=== PATIENT | female | born 1950 | race Caucasian/White ===

== ENCOUNTER 2020-04-02 07:36 | Outpatient (REF) | payer MEDICARE, OTHER, SELFPAY ==
--- NOTE | 2020-04-02 07:43 | MM_ITS ---
EXAMINATION: MM SCREENING DIGITAL BREAST TOMOSYNTHESIS, BILATERAL CLINICAL INFORMATION: Screening. Asymptomatic. Prior [id number] mammography currently unavailable. The lifetime risk of breast cancer based on the Tyrer-Cuzick Model is 3%. COMPARISON: None. TECHNIQUE: Digital breast tomosynthesis is performed in both the craniocaudal and mediolateral oblique views along with computer-aided detection (CAD). Synthesized 2D images are generated from the tomosynthesis. Additional bilateral exaggerated CC views are provided. FINDINGS: There are scattered areas of fibroglandular density (ACR BI-RADS breast composition Category b). There is fine fibronodular parenchymal pattern with no significant mass or architectural abnormality. There are no abnormal calcifications. Bilateral arterial calcifications are present. The axilla and skin contours are unremarkable. Radiology department staff will attempt to retrieve prior outside mammography to allow for comparison in an addendum report. MM/MM tomosynthesis screening BI IMPRESSION: No mammographic evidence of malignancy. ASSESSMENT: BI-RADS 2: Benign RECOMMENDATION: 1. Routine annual mammography screening. 2. Radiology department staff will attempt to retrieve prior outside mammography to allow for comparison in an addendum report. [facility] the [facility] with mildly symmetrically dilated 20 This patient's information was entered into a reminder system with a target due date for their next mammogram.
--- NOTE | 2020-04-02 07:44 | MM_ITS ---
EXAMINATION: BONE DENSITOMETRY CLINICAL INDICATION: Osteoporosis. COMPARISON: This is the patient's baseline examination. TECHNIQUE: Using a [employer] DXA System (software version: 13.1) manufactured by [employer], dual-energy x-ray absorptiometry was performed of the lumbar spine and left hip. The images are of good technical quality. Summary results are attached. FINDINGS: AP SPINE L2-L4 (excluding L1): The data of L1-L4 has been changed to exclude the L1 vertebral body, because degenerative sclerosis at this level may cause overestimation of lumbar spine density. BMD 1.173 g/cm2, Z-score 0.3, T-score -0.2, normal. LEFT FEMUR, NECK: BMD 0.916 g/cm2, Z-score 0.1, T-score -0.9, normal. LEFT FEMUR, TOTAL: BMD 0.874 g/cm2, Z-score -0.4, T-score -1.1, osteopenia. IDENTIFIED RISK FACTORS: Early menopause, secondary osteoporosis, hysterectomy. Osteoporosis, history of fracture (adult). HISTORY OF FRACTURE: Wrist. MEDICATIONS: Vitamin D. MM/XR DEXA axial skeleton IMPRESSION: 1. DIAGNOSIS: Osteopenia based on the lowest T-score value of -1.1 in the total femur applying World Health Organization criteria. 2. 10-YEAR FRACTURE RISK PREDICTION, FRAX: Major osteoporotic fracture (clinical spine, forearm, hip or shoulder) 6.6%. Hip fracture 0.6%. 3. Treatment Recommendations: NOF guidelines recommend consideration for treatment in postmenopausal women and men age 50 and older presenting with the following: -A hip or vertebral (clinical or morphometric) fracture. -T-score less than or equal to -2.5 at the femoral neck or spine after appropriate evaluation to exclude secondary causes. -Low bone mass at the hip or spine and a 10-year fracture probability by FRAX of greater than or equal to 3% for hip fracture or greater than or equal to 20% for major osteoporotic fracture based on the [place] adapted WHO algorithm. 4. Other Recommendations: All treatment decisions require clinical judgment and consideration of individual patient factors, including patient preferences, comorbidities, previous drug use, risk factors not captured in the FRAX model (e.g. frailty, falls, vitamin D deficiency, increased bone turnover, interval significant decline in bone density) and possible under or overestimation of fracture risk by FRAX. Additional medical evaluation for secondary cause of low bone mineral density may be appropriate. FUTURE SCAN RECOMMENDATION: People with diagnosed cases of osteoporosis or at high risk for fracture should have regular bone mineral density tests. For patients eligible for Medicare, routine testing is allowed once every 2 years. The testing frequency can be increased to one year for patients who have rapidly progressing disease, those who are receiving or discontinuing medical therapy to restore bone mass, or have additional risk factors.
== END 2020-04-02 07:37 | disposition home or self-care (01) ==
LOC: HO.MAMMO 07:36
PROVIDERS: PCP Emergency Medicine; Visit Provider Emergency Medicine
DX: Z12.31 Encounter for screening mammogram for malignant neoplasm of breast (principal); M81.0 Age-related osteoporosis without current pathological fracture; Z78.0 Asymptomatic menopausal state; Z90.710 Acquired absence of both cervix and uterus
CPT/HCPCS: 77063; 77067; 77080

== ENCOUNTER 2020-04-12 15:14 | Outpatient (REF) | payer MEDICARE, OTHER, SELFPAY ==
--- NOTE | 2020-04-12 16:11 | XR_ITS ---
EXAMINATION: XR CHEST CLINICAL INFORMATION: Pneumonia COMPARISON: 07/15/2019 TECHNIQUE: 2 views of the chest were obtained. FINDINGS: Again seen is a significantly elevated left hemidiaphragm. Heart size within normal limits. No evidence of CHF. The right lung is clear. Left basilar atelectasis is present. XR/XR chest 2V IMPRESSION: No acute intrathoracic disease. Chronically elevated left hemidiaphragm. Left basilar atelectasis.
[2020-04-12 17:08] LABS: MANUAL DIFF FLAG NO
[2020-04-12 17:13] LABS: Basophils Percent Auto 0.4 % (0-2); Eosinophils Absolute Auto 0.1 X10*3/uL (0.0-0.4); Eosinophils Percent Auto 0.8 % (0-4); Hemoglobin 14.3 g/dl (12.0-16.0); Imm Gran Abs Auto 0.02 X10*3/uL (0.00-0.03); Imm Gran Pct Auto 0.3 % (0.0-0.4); Mean Corpuscular HGB Conc 32.5 g/dl (31.0-35.0); Mean Corpuscular Hemoglobin 29.8 pg (27.0-33.0); Mean Corpuscular Volume 91.7 fL (80-98); Mean Platelet Volume 10.1 fL (9.4-12.3); Monocytes Absolute Auto 0.6 X10*3/uL (0.1-1.2); Monocytes Percent Auto 8.2 % (2-11); Neutrophils Absolute Auto 4.7 X10*3/uL (2.0-8.3); Neutrophils Percent Auto 63.3 % (45-73); Platelet Count 271 X10*3/uL (160-400); Red Cell Distribution Width 12.3 % (11.0-16.0); White Blood Count 7.4 X10*3/uL (4.8-10.8)
[2020-04-12 17:31] LABS: Anion Gap 11 (12-20); Blood Urea Nitrogen 9 mg/dL (9-16); Carbon Dioxide 36 mmol/L (22-29); Chloride 95 mmol/L (96-108); Estimated Glomerular Filt Rate > 60; Glucose Random 128 mg/dL (60-115); Potassium 3.7 mmol/l (3.3-5.1); Sodium 138 mmol/L (135-145)
[2020-04-12 18:08] LABS: Erythrocyte Sedimentation Rate 23 MM/HR (0-20)
[2020-04-13 08:15] LABS: SARS COV2 IgG Negative (Negative)
== END 2020-04-12 15:15 | disposition home or self-care (01) ==
LOC: HO.LAB 15:14
PROVIDERS: Visit Provider Hospitalist
DX: J18.9 Pneumonia, unspecified organism (principal); J44.9 Chronic obstructive pulmonary disease, unspecified; Z01.84 Encounter for antibody response examination
CPT/HCPCS: 36415; 71046; 80048; 85025; 85652; 86769; 99202

== ENCOUNTER 2020-07-12 08:02 | Outpatient (RCR) | payer MEDICARE, OTHER, SELFPAY | END 2020-07-22 11:05 | disposition home or self-care (01) | LOC: HO.WCC 08:02 | PROVIDERS: PCP General Practice; Visit Provider Physician Assistant | DX: Z09 Encounter for follow-up examination after completed treatment for conditions other than malignant neoplasm (principal); I10 Essential (primary) hypertension; E11.9 Type 2 diabetes mellitus without complications; Z79.84 Long term (current) use of oral hypoglycemic drugs | CPT/HCPCS: 11104; 88304; 88305; 99212 ==

== ENCOUNTER 2020-12-31 15:49 | Outpatient (REF) | payer MEDICARE, OTHER, SELFPAY ==
--- NOTE | ~2020-12-31 | XR_ITS ---
EXAMINATION: XR CHEST CLINICAL INFORMATION: COPD. COMPARISON: Chest radiograph dated 04/12/2020. TECHNIQUE: 2 views of the chest were obtained. FINDINGS: Elevation of the left hemidiaphragm with adjacent atelectasis, unchanged. No new airspace consolidation. No pleural effusion or pneumothorax. Stable cardiomediastinal silhouette. Diffuse bridging endplate osteophytes redemonstrated. XR/XR chest 2V IMPRESSION: No acute cardiopulmonary findings.
[2020-12-31 16:38] LABS: Estimated Average Glucose 226 mg/dL; Hemoglobin A1c % 9.5 %
[2020-12-31 17:01] LABS: Alanine Aminotransferase 26 U/L (0-31); Albumin Level 3.7 g/dL (3.5-5.0); Alkaline Phosphatase 104 U/L (39-117); Anion Gap 14 (12-20); Aspartate Amino Transferase 29 U/L (5-31); Bilirubin Total 0.4 mg/dL (0.0-1.0); Blood Urea Nitrogen 15 mg/dL (9-16); Carbon Dioxide 29 mmol/L (22-29); Chloride 100 mmol/L (96-108); Cholesterol 104 mg/dL; Estimated Glomerular Filt Rate > 60; Glucose Random 84 mg/dL (60-115); HDL Cholesterol 39 mg/dL; LDL Cholesterol Calculated 26 mg/dl; Potassium 3.5 mmol/L (3.3-5.1); Sodium 139 mmol/L (135-145); Total Protein 6.8 g/dL (6.5-8.0); Triglycerides 198 mg/dL
[2020-12-31 17:50] LABS: Creatinine Urine 65.75 mg/dL; Microalbum/Creatinine Ratio Ur 550.5 ug/mg cr
== END 2020-12-31 15:50 | disposition home or self-care (01) ==
LOC: HO.LAB 15:49
PROVIDERS: PCP General Practice; Visit Provider General Practice
DX: J44.9 Chronic obstructive pulmonary disease, unspecified (principal); E11.65 Type 2 diabetes mellitus with hyperglycemia
CPT/HCPCS: 36415; 71046; 80053; 80061; 82043; 83036

== ENCOUNTER 2022-01-05 13:52 | Outpatient (REF) | payer OTHER, SELFPAY ==
--- NOTE | ~2022-01-05 | MM_ITS ---
EXAMINATION: MM SCREENING DIGITAL BREAST TOMOSYNTHESIS, BILATERAL CLINICAL INFORMATION: Screening. Asymptomatic. The lifetime risk of breast cancer based on the Tyrer-Cuzick Model is 2%. COMPARISON: Mammography: 04/02/2020; outside mammography 11/20/2018, 03/15/2017 ([place], [place]). TECHNIQUE: Digital breast tomosynthesis is performed in both the craniocaudal and mediolateral oblique views along with computer-aided detection (CAD). Synthesized 2D images are generated from the tomosynthesis. Additional right cleavage view is provided. FINDINGS: There are scattered areas of fibroglandular density (ACR BI-RADS breast composition Category b). There are no significant masses, abnormal calcifications, or other abnormalities. Parenchymal pattern is similar to prior studies. There is no developing density or architectural abnormality. The axilla and skin contours are unremarkable. No significant changes. MM/MM tomosynthesis screening BI IMPRESSION: No mammographic evidence of malignancy. ASSESSMENT: BI-RADS 1: Negative RECOMMENDATION: Routine annual mammography screening. This patient's information was entered into a reminder system with a target due date for their next mammogram.
== END 2022-01-05 13:53 | disposition home or self-care (01) ==
LOC: HO.MAMMO 13:52
PROVIDERS: PCP General Practice; Visit Provider General Practice
DX: Z12.31 Encounter for screening mammogram for malignant neoplasm of breast (principal)
CPT/HCPCS: 77063; 77067

== ENCOUNTER 2023-01-12 11:42 | Outpatient (REF) | payer OTHER, SELFPAY ==
--- NOTE | ~2023-01-12 | XR_ITS ---
EXAMINATION: XR KNEE, RIGHT CLINICAL INFORMATION: Osteoarthritis COMPARISON: None available. TECHNIQUE: 5 views of the right knee. FINDINGS: Severe medial compartment osteoarthritis, marked joint space loss, osteophytes, cysts. Marginal osteophytes in the patellofemoral and lateral compartment. No acute fracture or dislocation. No significant effusion. XR/XR knee RT 4V IMPRESSION: Tricompartment osteoarthritis. Severe medial compartment osteoarthritis.
== END 2023-01-12 11:43 | disposition home or self-care (01) ==
LOC: HO.HHCX 11:42
PROVIDERS: Visit Provider Internal Medicine
DX: M17.11 Unilateral primary osteoarthritis, right knee (principal)
CPT/HCPCS: 73564

== ENCOUNTER 2023-02-02 16:02 | Outpatient (REF) | payer MEDICARE, SELFPAY ==
--- NOTE | ~2023-02-02 | MM_ITS ---
EXAMINATION: MM SCREENING DIGITAL BREAST TOMOSYNTHESIS, BILATERAL CLINICAL INFORMATION: Screening. Asymptomatic. COMPARISON: Mammography: This study is compared with prior exams dating back to TECHNIQUE: Digital breast tomosynthesis is performed in both the craniocaudal and mediolateral oblique views along with computer-aided detection (CAD). Synthesized 2D images are generated from the tomosynthesis. FINDINGS: There are scattered areas of fibroglandular density (ACR BI-RADS breast composition Category b). There are no significant masses, abnormal calcifications, or other abnormalities. There is a biopsy tissue marker in the left breast. MM/MM tomosynthesis screening BI IMPRESSION: No mammographic evidence of malignancy. ASSESSMENT: BI-RADS BI-RADS 2 - Benign Findings RECOMMENDATION: Routine annual mammography screening. 1 year F/U This examination should not preclude the clinical evaluation of a suspicious palpable abnormality. This patient's information was entered into a reminder system with a target due date for their next mammogram.
== END 2023-02-02 16:03 | disposition home or self-care (01) ==
LOC: HO.MAMMO 16:02
PROVIDERS: Visit Provider General Practice
DX: Z12.31 Encounter for screening mammogram for malignant neoplasm of breast (principal)
CPT/HCPCS: 77063; 77067

== ENCOUNTER → 2023-02-02 16:15 | Outpatient (BNV) | payer MEDICARE, SELFPAY | PROVIDERS: Visit Provider Radiology Diagnostic Radiology | DX: Z12.31 Encounter for screening mammogram for malignant neoplasm of breast (principal) | CPT/HCPCS: 77063; 77067 ==

== ENCOUNTER 2023-03-09 15:21 | Outpatient (REF) | payer MEDICARE, SELFPAY ==
[2023-03-09 17:16] LABS: Anion Gap 14 (12-20); Blood Urea Nitrogen 11 mg/dL (9-16); Calcium 9.9 mg/dL (8.4-10.2); Carbon Dioxide 32 mmol/L (22-29); Chloride 99 mmol/L (96-108); Estimated Glomerular Filt Rate > 60; Glucose Random 171 mg/dL (60-115); Potassium 3.3 mmol/L (3.3-5.1); Sodium 142 mmol/L (135-145)
== END 2023-03-09 15:22 | disposition home or self-care (01) ==
LOC: HO.HHCL 15:21
PROVIDERS: Visit Provider General Practice
DX: E11.65 Type 2 diabetes mellitus with hyperglycemia (principal)
CPT/HCPCS: 36415; 80048

== ENCOUNTER 2023-09-28 10:16 | Outpatient (REF) | payer MEDICARE, SELFPAY ==
[2023-09-28 11:51] LABS: Estimated Average Glucose 137 mg/dL; Hemoglobin A1c % 6.4 % (<6.0)
[2023-09-28 12:18] LABS: Creatinine Urine 43.65 mg/dL; Microalbumin Urine < 5.0 mg/L
[2023-09-28 12:33] LABS: Alanine Aminotransferase 20 U/L (0-31); Albumin Level 3.8 g/dL (3.5-5.0); Alkaline Phosphatase 109 U/L (39-117); Anion Gap 15 (12-20); Aspartate Amino Transferase 22 U/L (5-31); Bilirubin Total 0.4 mg/dL (0.0-1.0); Blood Urea Nitrogen 10 mg/dL (9-16); Calcium 9.4 mg/dL (8.4-10.2); Carbon Dioxide 27 mmol/L (22-29); Chloride 102 mmol/L (96-108); Cholesterol 200 mg/dL (<200); Estimated Glomerular Filt Rate > 60; Glucose Random 140 mg/dL (60-115); HDL Cholesterol 41 mg/dL (>40); LDL Cholesterol Calculated 121 mg/dL (<100); Potassium 3.7 mmol/L (3.3-5.1); Sodium 140 mmol/L (135-145); Total Protein 7.6 g/dL (6.5-8.0); Triglycerides 193 mg/dL (<150)
[2023-09-30 15:38] LABS: C. trachomatis RNA TMA NOT DETECTED (NOT DETECTED); N. gonorrhoeae RNA TMA NOT DETECTED (NOT DETECTED)
[2023-10-09 12:49] LABS: HPV mRNA E6/E7 rflx Not Detected (Not Detected)
== END 2023-09-28 10:17 | disposition home or self-care (01) ==
LOC: HO.HHCL 10:16
PROVIDERS: Visit Provider General Practice
DX: E11.65 Type 2 diabetes mellitus with hyperglycemia (principal); Z12.4 Encounter for screening for malignant neoplasm of cervix
CPT/HCPCS: 36415; 80053; 80061; 81513; 82043; 82570; 83036; 87491; 87591; 87624; 88142

== ENCOUNTER 2025-03-17 10:09 | Outpatient (REF) | payer MEDICARE, SELFPAY ==
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
[2025-03-17 11:34] LABS: Alanine Aminotransferase 19 U/L (0-31); Albumin Level 3.9 g/dL (3.5-5.0); Alkaline Phosphatase 116 U/L (39-117); Anion Gap 9 (12-20); Aspartate Amino Transferase 33 U/L (5-31); Blood Urea Nitrogen 12 mg/dL (9-16); Calcium 9.3 mg/dL (8.4-10.2); Carbon Dioxide 36 mmol/L (22-29); Chloride 99 mmol/L (96-108); Cholesterol 119 mg/dL (<200); Estimated Glomerular Filt Rate > 60; HDL Cholesterol 47 mg/dL (>40); Potassium 3.4 mmol/L (3.3-5.1); Sodium 141 mmol/L (135-145); Total Protein 7.2 g/dL (6.5-8.0); Triglycerides 182 mg/dL (<150)
[2025-03-17 12:13] LABS: Microalbum/Creatinine Ratio Ur 34.1 ug/mg cr (<30)
--- OUTSIDE RECORDS SUMMARY | 2025-03-17 12:17 | XMS_ITS | Encounter Summary ---
Author Organization [employer] [facility] Address [address] [place] [address] [address] [place] [address] Care Team Providers Care Wound Care Physician Name Role Phone Nikky Shaw MD Primary Care Provider [phone] Reason for Visit * Reason Comments Med Refill Encounter Details Date Type Department Care Team (Late st Contact Info) Description 08/12/2022 Refill [facility] [address] [place], [place] [phone] Nikky Shaw MD [address] [place] [address] [phone] Social History Tobacco Use Types Packs/Day Years Used Date Smoking Tobacco: Never Smokeless Tobacco: Never Comments Unknown Sex and Gender Information Value Date Recorded Sex Assigned at Female 03/20/2022 10:36 AM EDT Legal Sex Female 10:36 AM EDT Gender Identity Female 03/20/2022 10:36 AM EDT Sexual Orientation Straight 03/20/2022 10 :36 AM EDT documented as of this encounter Plan of Treatment Upcoming Encounters Date Type Department Care Team (Late st Contact Info) Description 04/14/2025 1:30 PM EST Office Visit [facility] [address] [place] [address] Rush Taylor documented as of this encounter Visit Diagnoses Not on filedocumented in this encounter Care Teams Wound Care Physician Relationship Specialty Start Date End Date Nikky Shaw MD [address] [place] [address] [phone] PCP - General Family Medicine 04/02/20 documented as of this encounter
--- OUTSIDE RECORDS SUMMARY | 2025-03-17 12:17 | XMS_ITS | Encounter Summary ---
Author Organization [employer] Address [address] [facility] [address] [place] [address] Care Team Providers Care Agricultural Real Estate Agent Name Role Phone Nikky Shaw MD Primary Care Provider [phone] Reason for Visit * Reason Onset Date Comments Medication 01/17/2023 Encounter Details Date Type Department Care Team ([facility] st Contact Info) Description 01/17/2023 Telephone [facility] MEDICINE [address] [place], [place] [phone] Nikky Shaw MD [address] [place], [place] [phone] Medication Social History Tobacco Use Types Packs/Day Years Used Date Smoking Tobacco: Never Smokeless Tobacco: Never Alcohol Use Standard Drinks/Week Comments Not Currently 0 (1 standard drink = 0.6 oz pur e alcohol) Depression Answer Date Recorded Patient Health Questionnaire-9 Score 0 10/20/2022 Depression Answer Date Recorded Patient Health Questionnaire-2 Score 0 10/20/2022 Comments Unknown Sex and Gender Information Value Date Recorded Sex Assigned at Female 03/20/2022 10:36 AM EDT Legal Sex Female 10:36 AM EDT Gender Identity Female 03/20/2022 10:36 AM EDT Sexual Orientation Straight 03/20/2022 10 :36 AM EDT documented as of this encounter Miscellaneous Notes * Telephone Encounter - Joanne Aragonnez - 01/17/2023 11:10 AM EDT Tc from patient daughter states pharmacy's computers were down on 01/12/23 and they let her know they haven't received any scripts on 01/12/23. fluticasone furoate (Arnuity Ellipta) 200 MCG/ACT inhaler methylPREDNISolone (Medrol Dospak) 4 MG tablets meloxicam (Mobic) 15 MG tablet albuterol 108 (90 Base) MCG/ACT inhaler Spacer/Aero-Holding Chambers (AeroChamber MV) inhaler. Please send to [facility] on [address] in [place]. PCP Dr. Shaw documented in this encounter Plan of Treatment Upcoming Encounters Date Type Department Care Team (Late st Contact Info) Description 04/14/2025 1:30 PM EST Office Visit [facility] ADULT DENTAL [address] [place] [address] Rush Taylor documented as of this encounter Visit Diagnoses Diagnosis COPD with acute exacerbation (CMS/HCC) (HCC) Primary osteoarthritis of right knee documented in this encounter Additional Health Concerns Assessment Noted Time PHQ-9 Depression Total Score: 0 10/21/19 23 3:26 PM EDT documented as of this encounter Care Teams Agricultural Real Estate Agent Relationship Specialty Start Date End Date Nikky Shaw MD [address] [place] [address] PCP - General Family Medicine 04/02/20 documented as of this encounter
--- OUTSIDE RECORDS SUMMARY | 2025-03-17 12:17 | XMS_ITS | Encounter Summary ---
Author Organization [employer] Address [address] [facility] [address] [place] [address] Care Team Providers Care Stick Puller Name Role Phone Nikky Shaw MD Primary Care Provider [phone] Reason for Visit * Reason Comments Med Refill Encounter Details Date Type Department Care Team (Late st Contact Info) Description 06/24/2022 Refill [facility] MEDICINE [address] [place], [place] [phone] Nikky Shaw MD [address] [place], [place] [phone] Social History Tobacco Use Types Packs/Day Years Used Date Smoking Tobacco: Never Smokeless Tobacco: Never Comments Unknown Sex and Gender Information Value Date Recorded Sex Assigned at Female 03/20/2022 10:36 AM EDT Legal Sex Female 10:36 AM EDT Gender Identity Female 03/20/2022 10:36 AM EDT Sexual Orientation Straight 03/20/2022 10 :36 AM EDT COVID-19 Exposure Response Date Recorded In the last 10 days, have yo u been in contact with someone who was confirmed or suspected to have Coronavirus/COVID-19? No / Unsure 06/16/2022 3:28 PM EST documented as of this encounter Plan of Treatment Upcoming Encounters Date Type Department Care Team (Late st Contact Info) Description 04/14/2025 1:30 PM EST Office Visit [facility] AD[facility] [address] [place] [address] Rush Taylor documented as of this encounter Visit Diagnoses Not on filedocumented in this encounter Care Teams Stick Puller Relationship Specialty Start Date End Date Nikky Shaw MD [address] [place] [address] PCP - General Family Medicine 04/02/20 documented as of this encounter
--- OUTSIDE RECORDS SUMMARY | 2025-03-17 12:17 | XMS_ITS | Clinical Summary ---
Author Organization [employer] Address [address] [facility] [address] [place] [address] Care Team Providers Care Dictaphone Typist Name Role Phone Nikky Shaw MD Primary Care Provider [phone] Allergies No known active allergies Medications * This document contains information received from the source organization and may not represent a complete record from that organization. glucose blood (FREESTYLE LITE) test strip Use 1 by To Skin route 2 times every day 020 Active clotrimazole (Lotrimin) 1 % cream APPLY 1 GRAM 2 TIMES EVERY DAY TO THE AFFECTED & SURROUNDING AREAS OF SKIN IN THE MORNING & EVENING 90 g 11 025 Active gabapentin (Neurontin) 300 MG capsule Take 1 capsule (300 mg) by mouth at bedtime. 90 capsule 3 025 2025 Active albuterol (2.5 MG/3ML) 0.083% nebulizer solution Take 3 mL (2.5 mg) by nebulization every 6 (six) hours if needed for wheezing or shortness of breath. 75 mL 3 025 Active albuterol (Ventolin HFA) 108 (90 Base) MCG/ACT inhalerIndication s:COPD with acute exacerbation (CMS/HCC) (HCC) TAKE 2 PUFFS BY MOUTH EVERY 4 TO 6 HOURS NEEDED 18 g 025 Active atenolol-chlortha lidone (Tenoretic) 50-25 MG tabletIndications :Essential hypertension Take 1 tablet by mouth every day 90 tablet 3 025 Active Calcium Carb-Cholecalcife rol 600-10 MG-MCG tabletIndications :Primary osteoarthritis of right knee Inhale 1 tablet Once per day. 90 tablet 3 Active fluticasone furoate (Arnuity Ellipta) 200 MCG/ACT inhalerIndication s:COPD with acute exacerbation (CMS/HCC) ([facility]) Inhale 1 puff Once per day. Rinse mouth with water after use to reduce aftertaste and incidence of candidiasis. Do not swallow. 1 each 11 025 2025 Active glipiZIDE XL (Glucotrol XL) 10 MG 24 hr tabletIndications :Type 2 diabetes mellitus with hyperglycemia, without long-term current use of insulin ([facility]) TAKE 1 TABLET BY MOUTH TWICE A DAY 180 tablet 3 Active rosuvastatin (Crestor) 40 MG tabletIndications :Type 2 diabetes mellitus with hyperglycemia, without long-term current use of insulin ([facility]) Take 1 tablet (40 mg) by mouth Once per day. 90 tablet 3 Active Semaglutide,0.25 or 0.5MG/DOS, (Ozempic, 0.25 or 0.5 MG/DOSE,) 2 MG/3ML solution pen-injectorIndic ations:Type 2 diabetes mellitus with hyperglycemia, without long-term current use of insulin ([facility]) Inject 0.5 mg under the skin 1 (one) time per week. 2 mL 3 Active Calcium Carb-Cholecalcife rol 600-10 MG-MCG tablet take one tablet daily for fracture prevention 020 2024 Discontinued(R eorder (will not trigger notification to Pharmacy)) albuterol (Ventolin HFA) 108 (90 Base) MCG/ACT inhalerIndication s:COPD with acute exacerbation (CMS/HCC) ([facility]) TAKE 2 PUFFS BY MOUTH EVERY 4 TO 6 HOURS NEEDED 18 g 023 2024 Discontinued(R eorder (will not trigger notification to Pharmacy)) rosuvastatin (Crestor) 40 MG tablet Take 1 tablet (40 mg) by mouth Once per day. 90 tablet 3 024 2024 Discontinued(R eorder (will not trigger notification to Pharmacy)) atenolol-chlortha lidone (Tenoretic) 50-25 MG tabletIndications :Essential hypertension TAKE 1 TABLET BY MOUTH EVERY DAY 90 tablet 3 025 2024 Discontinued(R eorder (will not trigger notification to Pharmacy)) Dulaglutide 1.5 MG/0.5ML solution auto-injectorIndi cations:Type 2 diabetes mellitus with hyperglycemia, without long-term current use of insulin ([facility]) Inject 1.5 mg under the skin 1 (one) time per week. 2 mL 3 2024 Discontinued(T herapy completed) glipiZIDE XL (Glucotrol XL) 10 MG 24 hr tablet TAKE 1 TABLET BY MOUTH TWICE A DAY 180 tablet 3 2024 Discontinued(R eorder (will not trigger notification to Pharmacy)) fluticasone furoate (Arnuity Ellipta) 200 MCG/ACT inhalerIndication s:Pulmonary emphysema, unspecified emphysema type Inhale 1 puff Once per day. Rinse mouth with water after use to reduce aftertaste and incidence of candidiasis. Do not swallow. 1 each 11 025 2024 Discontinued(R eorder (will not trigger notification to Pharmacy)) albuterol (2.5 MG/3ML) 0.083% nebulizer solution Take 3 mL (2.5 mg) by nebulization every 6 (six) hours if needed for wheezing or shortness of breath. 75 mL 3 2024 Discontinued(R eorder (will not trigger notification to Pharmacy)) Active Problems Problem Noted Date Diagnosed Date Moderate major depression ([facility]) 03/17/2025 Severe obesity (BMI 35.0-39.9) with comorbidity ([facility]) 05/15/2024 Assessment & Plan (05/18/2024 8:27 AM EST): Losing weight with Trulicity, highest weight 250lbs 12 months ago Primary osteoarthritis of right knee 01/12/2023 Assessment & Plan (03/17/2025 9:46 AM EDT): Pain and instability with walking, currently using a cane but still experiencing weakness and near falls Will order wheeled walker with seat to aid in safe ambulation Assessment & Plan (01/12/2023 11:37 AM EDT): Referred to PT Cont ambulation w/ cane FU w/ PCP Difficulty with activities of daily living 10/24 Assessment & Plan (10/24/2022 1:03 PM EDT): Support TEXTILE MACHINERY INSTRUCTOR services for bathing, dressing, shopping, and cooking Memory loss 06/20/2022 Assessment & Plan (10/24/2022 1:03 PM EDT): Gave phone number to call to re-schedule Neurology appointment Assessment & Plan (06/20/2022 7:18 AM EST): CBC, RPR, B12 ordered today Could not tolerate MRI, so does not want brain MRI Neurology referral Encourage social interaction, activities that engage her Chronic obstructive lung disease 06/12/2022 Assessment & Plan (03/12/2023 7:21 AM EDT): Follows with pulm Cont fluticasone/slameterol daily ANÍBAL prn Assessment & Plan (06/20/2022 7:16 AM EST): Follows with pulm Cont fluticasone/slameterol daily ANÍBAL prn Disturbance in sleep behavior 06/12/2022 Essential hypertension 06/12/2022 Assessment & Plan (03/12/2023 7:22 AM EDT): At goal currently Low Na diet Continue dual agents Assessment & Plan (10/24/2022 1:01 PM EDT): At goal currently Low Na diet Continue dual agents Assessment & Plan (06/20/2022 7:16 AM EST): At goal currently Low Na diet Mixed hyperlipidemia 06/12/2022 Obstructive sleep apnea syndrome 06/12/2022 Assessment & Plan (10/24/2022 1:00 PM EDT): Encouraged CPAP compliance O2 2L at night Assessment & Plan (06/20/2022 7:15 AM EST): Encouraged CPAP compliance Snoring 06/12/2022 Type 2 diabetes mellitus 06/12/2022 Assessment & Plan (03/17/2025 9:49 AM EDT): A1C 9.4 Taking Glipizide 10mg XL daily, taking Trulicity 1.5mg weekly Will switch to Ozempic because has lost 10 pounds on Trulicity for > 6 months, which is not adequate weight loss response Continue Atorvastatin 40mg nightly SARATH 09/2022, referral pending (11/07/24) Assessment & Plan (11/07/2024 1:26 PM EDT): Return to Trulicity at 1.5mg weekly; if this is tolerated after 4 weeks, increase back to 3mg weekly Restart Glipizide 10mg XL A1C 10.2 today Continue Atorvastatin 40mg nightly SARATH 09/2022, referral placed today (11/07/24) Assessment & Plan (05/18/2024 8:21 AM EST): continue Trulicity at 3mg weekly Continue Glipizide 10mg XL A1C 6.7 today Continue statin SARATH 09/2022 Monofilament abnl today, referred to podiatry Due for Imms, she declines Assessment & Plan (03/12/2023 7:22 AM EDT): continue Trulicity at 3mg weekly Continue Glipizide 10mg XL A1C 7.0 today Continue statin SARATH 09/2022 Due for monofilament and imms Assessment & Plan (01/12/2023 11:37 AM EDT): Cont trulicity weekly FU w/ PCP as scheduled Assessment & Plan (10/24/2022 1:03 PM EDT): continue Trulicity at 3mg weekly Continue Glipizide 10mg XL A1C 7.0 today Continue statin SARATH 09/2022 Assessment & Plan (06/20/2022 7:17 AM EST): increase Trulicty to 3mg weekly A1C 8.8 today Stage 2 chronic kidney disease 10/26/2020 Assessment & Plan (10/24/2022 1:02 PM EDT): Cr 0.82/ eGFR 75 last check Avoid nephrotoxins Drink 6-8 bottles of water daily Assessment & Plan (06/20/2022 7:17 AM EST): Check renal function today Avoid nephrotoxins Drink 6-8 bottles of water daily Resolved Problems Problem Noted Date Diagnosed Date Resolved Date Stage 3a chronic kidney disease (CMS/HCC) 05/15/2024 05/18/2024 Other emphysema 01/12/2023 03/17/2025 Assessment & Plan (01/12/2023 11:37 AM EDT): Start medrol pack today and restart flovent 200mg daily Use albuterol w/ aerochamber q4h prn D/w pt re: hyperglycemia 2/2 steroids, she will FU if BS above 300 FU w/ PCP as scheduled Encounters * This document contains information received from the source organization and may not represent a complete record from that organization. Date Type Department Care Team Description 03/17/2025 9:00 AM EDT Office Visit [facility] MEDICINE [address] [place] [phone] Nikky Shaw MD Type 2 diabetes mellitus with hyperglycemia, without long-term current use of insulin (HCC) (Primary Dx); COPD with acute exacerbation (CMS/HCC) (HCC); Essential hypertension; Other emphysema (HCC); Mixed hyperlipidemia; Severe obesity (BMI 35.0-39.9) with comorbidity (CMS/HCC) (HCC); Primary osteoarthritis of right knee; Obstructive sleep apnea syndrome; Difficulty with activities of daily living 03/17/2025 Refill [facility] MEDICINE [address] [place] [phone] Nikky Shaw MD 03/17/2025 Travel 03/16/2025 Telephone [facility] MEDICINE [address] [place] [phone] Nikky Shaw MD Chart Prep 03/05/2025 Telephone [facility] MEDICINE [address] [place], [place] [phone] Nikky Shaw MD Medication Question from Last 3 Months Immunizations Immunization Administration Dates Next Due Influenza injectable quadrivalent preservative f ree 03/17/2022 Influenza, High Dose Seasonal, Preservative Free 05/15/2024,02/06/2019 Pfizer Covid-19 Vaccine 12+ 12/21/2020, 1 Pneumococcal Conjugate PCV 20 03/17/2022 TD (adult), 2 Lf tetanus tox oid, preservative free, adsorbed 03/17/2022 Social History Tobacco Use Types Packs/Day Years Used Date Smoking Tobacco: Never Smokeless Tobacco: Never Tobacco Cessation:Counseling Given: Not Answered Alcohol Use Standard Drinks/Week Comments Not Currently [...] the past 12 months, has t he electric, gas, oil or water company threatened to [...] Orientation Straight 03/20/2022 10 :36 AM EDT Last Filed Vital Signs Vital Sign Reading [...] Mass Index 38.59 03/17/2025 9:11 AM EDT Plan of Treatment Upcoming Encounters Date Type Department Care Team (Late st Contact Info) Description 04/14/2025 1:30 PM EST Office Visit [facility] ADULT DENTAL [address] [place] [address] Rush Taylor Health Maintenance Due Date Last Done Comments Alcohol/Substance Use Screening 1962 Hepatitis C Screening 1966 Zoster Vaccines (1 of 2) 1998 DTaP/Tdap/Td Vaccines (1 - Tdap) 03/18/2022 03/17/2022 RSV Patients and Patients Aged 60 years or older (1 - 1-dose 75+ series) 09/04/2023 Diabetes: Urine Protein Screening 09/27/2024 03/17/2025, 09/28/2023, 03/24/2022, Additional history exists Eye Exam 10/19/2024 10/19/2022 Dental Oral Exam 12/11/2024 06/12/2024, 04/2022, 05/01/2022 Dental Prophylaxis 12/11/2024 06/12/2024, 05/01/2022 COVID-19 Vaccine ( season) 2025 12/21/2020, 12/01/2020 Influenza Vaccine (#1) 2025 , 03/17/2022, 02/06/2019 SDOH Screening 05/01/2025 05/01/2024 Diabetes: Foot Exam 05/15/2025 05/15/2024, 05/15/2024, 05/15/2024, Additional history exists Dental X-Ray: Bitewings 06/13/2025 06/12/2024, 05/01 Diabetes: Hemoglobin A1C 06/17/2025 025, 11/05/2024, 05/15/2024, Additional history exists Depression Monitoring 09/15/2025 03/17/2025, 025 Lipid Panel 03/17/2026 03/17/2025, 05/1 , 03/24/2022, Additional history exists Tobacco Screening 03/17/2026 03/17/2025 Dental X-Ray: Full Mouth 06/13/2027 06/12/2024 Pneumococcal Vaccine: 50+ Years Completed 03/17/2022 HIB Vaccines Aged Out No longer eligi ble based on patient's age to complete this topic HPV Vaccines Aged Out No longer eligi ble based on patient's age to complete this topic Hepatitis A Vaccines Aged Out No long er eligible based on patient's age to complete this topic Hepatitis B Vaccines Aged Out No long er eligible based on patient's age to complete this topic IPV Vaccines Aged Out No longer eligi ble based on patient's age to complete this topic Meningococcal B Vaccine Aged Out No l onger eligible based on patient's age to complete this topic Meningococcal Vaccine Aged Out No flakito liberty eligible based on patient's age to complete this topic RSV under 20 months Aged Out No longe r eligible based on patient's age to complete this topic Rotavirus Vaccines Aged Out No longer eligible based on patient's age to complete this topic Procedures Procedure Name Priority Date/Time Associated Diagnosis Comments COMPREHENSIVE METABOLIC PANEL Routine 03/17/2025 10:21 AM EDT Type 2 diabetes mellitus with hyperglycemia, without long-term current use of insulin (HCC) ALBUMIN, RANDOM URINE W/CREATININE Routine 03/17/2025 10:21 AM EDT Type 2 diabetes mellitus with hyperglycemia, without long-term current use of insulin (HCC) LIPID PANEL, STANDARD Routine 03/17/2025 10:21 AM EDT Type 2 diabetes mellitus with hyperglycemia, without long-term current use of insulin ([facility]) POCT GLYCATED HEMOGLOBIN, TOTAL Routine 03/17/2025 9:34 AM EDT Type 2 diabetes mellitus with hyperglycemia, without long-term current use of insulin ([facility]) POCT GLUCOSE Routine 03/17/2025 9:13 AM EDT Type 2 diabetes mellitus with hyperglycemia, without long-term current use of insulin ([facility]) PROPHYLAXIS - ADULT Routine 06/12/2024 1 :00 PM EST INTRAORAL - COMPLETE SERIES OF RADIOGRAPHIC IMAGES Routine 06/12/2024 1:00 PM EST PERIODIC ORAL EVALUATION - ESTABLISHED PATIENT Routine 06/12/2024 1:00 PM EST from Last 3 Months or Most Recently Relevant to Health Maintenance Results * (ABNORMAL) Albumin, Random Urine W/Creatinine (03/17/2025 10:21 AM EDT) Creatinine, Urine 99.66 mg/dL [facility] Microalbumin Urine 34.0 mg/L [facility] Microalbum Creatinine Ratio Ur 34.1(H) <30 ug/mg cr [facility] Comment:Albumin/Creatinine R atio Reference Ranges: Normal: < 30 ug/mg creatinine Microalbuminuria: 30 - 300 ug/mg creatinineClinical Albuminuria: > 300 ug/mg creatinine Urine (Urine, Random) 03/17/2025 10:21 AM EDT 03/17/2025 11:02 AM EDT us Nikky Shaw MD LAB URINE ORDERABLES Final Res ult [facility] [address] [place] [phone] * (ABNORMAL) Lipid Panel, Standard (03/17/2025 10:21 AM EDT) Triglycerides 182(H) <150 mg/dL [facility] Comment:Desirable Triglyceri de: less than 150 mg/dLBorderline High Triglyceride 150-199 mg/dLHigh Triglyceride: 200-499 mg/dLVery High Triglyceride: greater than or equal to 5OO mg/dL Cholesterol 119 <200 mg/dL [facility] Comment:Desirable Cholestero l: less than 200 mg/dLBorderline High Cholesterol: 200-239 mg/dLHigh Cholesterol: greater than 239 mg/dL LDL Cholesterol Calculated 36 <100 mg/dL [facility] Comment:Desirable LDL: less than 100 mg/dLNear Optimal/Above Optimal LDL: 110- 129 mg/dLBorderline High LDL: 130-159 mg/dLHigh LDL: 160-189 mg/dLVery High LDL: greater than or equal to 190 mg/dL HDL Cholesterol 47 >40 mg/dL [facility] Comment:Desirable HDL: great er than 40 mg/dL Note: This HDL assay may give artificially low results in patients with liver disease. Blood Venous blood specimen / Unknown 03/17/2025 10:21 AM EDT 03/17/2025 11:02 AM EDT us Nikky Shaw MD LAB BLOOD ORDERABLES Final Res ult [facility] [address] [place] [phone] * (ABNORMAL) Comprehensive Metabolic Panel (03/17/2025 10:21 AM EDT) Sodium 141 135 - 145 mmol/L [facility] Potassium 3.4 3.3 - 5.1 mmol/L [facility] Chloride 99 96 - 108 mmol/L [facility] Carbon Dioxide 36(H) 22 - 29 mmol/L [facility] Anion Gap 9(L) 12 - 20 [facility] Urea Nitrogen (BUN) 12 9 - 16 mg/dL [facility] Creatinine, Serum 0.73 0.5 - 1.4 mg/dL [facility] Estimated Glomerular Filt Rate >60 [facility] Comment:Chronic Kidney Disea se: Estimated GFR < 60 mL/min/1.77y6Alevfo Kidney Disease: Estimated GFR < 15 mL/min/1.73m2 Glucose 263(H) 60 - 115 mg/dL [facility] Calcium 9.3 8.4 - 10.2 mg/dL [facility] Bilirubin, Total 0.4 0.0 - 1.0 mg/dL [facility] Aspartate Amino Transferase 33(H) 5 - 31 U/L [facility] Alanine Aminotransferase 19 0 - 31 U/L [facility] Total Protein 7.2 6.5 - 8.0 g/dL [facility] Albumin Level 3.9 3.5 - 5.0 g/dL [facility] Alkaline Phosphatase 116 39 - 117 U/L [facility] Blood Venous blood specimen / Unknown 03/17/2025 10:21 AM EDT 03/17/2025 11:02 AM EDT Nikky Shaw MD LAB BLOOD ORDERABLES Final Res ult [facility] [address] [place], [place] [phone] * (ABNORMAL) POCT Hgb A1c (03/17/2025 9:34 AM EDT) Hemoglobin A1C 9.4(A) 4.0 - 5.7 % QC Media Lot # [id number] Lot# Expiration Date Blood 03/17/2025 9:34 AM EDT Nikky Shaw MD POINT OF CARE TEST ENTER/EDIT ORDERABLES Final Result * (ABNORMAL) POCT Glucose (03/17/2025 9:13 AM EDT) Glucose Blood, POC 201(A) 60 - 200 mg/dL [employer] Lot # [id number] Lot# Expiration Date 31,126 Blood Capillary blood specimen / Unknown 03/17/2025 9:13 AM EDT Nikky Shaw MD POINT OF CARE TEST ENTER/EDIT ORDERABLES Final Result from Last 3 Months Insurance [facility] MEDICARE ADVANTAGE DENTAL - [facility]SN FULL (MEDICAID) DENTAL - [facility] PPO Care Teams Dictaphone Typist Relationship Specialty Start Date End Date Nikky Shaw MD [address] [place] [phone] PCP - General Family Medicine 04/02/20
--- OUTSIDE RECORDS SUMMARY | 2025-03-17 12:17 | XMS_ITS | Encounter Summary ---
Author Organization [employer] Address [address] [facility] [address] [place] [address] Care Team Providers Care Head Host/Hostess Name Role Phone Nikky Shaw MD Primary Care Provider [phone] Reason for Visit * Reason Comments Med Refill Encounter Details Date Type Department Care Team (Late st Contact Info) Description 07/06/2022 Refill [facility] MEDICINE [address] [place], [place] [phone] Nikky Shaw MD [address] [place], [place] [phone] Social History Tobacco Use Types Packs/Day Years [...] Description 04/14/2025 1:30 PM EST Office Visit [facility] ADULT DENTAL [address] [place] [address] Rush Taylor documented as of this encounter Visit Diagnoses Not on filedocumented in this encounter Care Teams Head Host/Hostess Relationship Specialty Start Date End Date Nikky Shaw MD [address] [place] [phone] PCP - General Family Medicine 04/02/20 documented as of this encounter
--- OUTSIDE RECORDS SUMMARY | 2025-03-17 12:17 | XMS_ITS | Encounter Summary ---
Author Organization [employer] Address [address] [facility] 7t [place] [address] Care Team Providers Care Instrument Mechanic Name Role Phone Nikky Shaw MD Primary Care Provider [phone] Encounter Details Date Type Department Care Team ([facility] Contact Info) Description 01/17/[address] [facility] MEDICINE [address] [place], [place] [phone] Nikky Shaw MD [address] [place], [place] [phone] COPD with acute exacerbation (CMS/HCC); Primary osteoarthritis of right knee Social History Tobacco Use Types Packs/Day Years [...] Encounters Date Type Department Care Team (Late Contact Info) Description 04/14/2025 1:30 PM EST Office Visit [facility] ADULT DENTAL [address] [place] [address] Rush Taylor documented as of this encounter Procedures Procedure Name Priority Date/Time Associated Diagnosis Comments BI MAMMOGRAM SCREENING TOMOSYNTHESIS BILATERAL Routine 02/02/2023 4:20 PM EDT documented in this encounter Results * BI Mammogram Screening Tomosynthesis Bilateral (02/02/2023 4:20 PM EDT) Anatomical Region Laterality Modality Breast Bilateral Mammography 02/02/2023 4:20 PM EDT Narrative 02/18/2023 8:04 AM EDT [facility] [address] [place] [address] Mammography Report Signed Patient: Cornelia Helm MR#: [id number] : 1950 Acct:[id number] Age/Sex: 72 / F ADM Date: 02/02/23 Loc: MAMMJerry Attending Dr: Nikky Shaw MD Ordering Physician: Nikky Shaw Results: 2Benign F indings Date of Service: 02/02/23 Follow Up: 1 Year From Orig ina Mammogram Procedure(s): MM tomosynthesis screening BI Accession Number(s): [id number] cc: Nikky Shaw EXAMINATION: MM SCREENING DIGITAL BREAST TOMOSYNTHESIS, BILATERAL CLINICAL INFORMATION: Screening. Asymptomatic. COMPARISON: Mammography: This study is compared with prior exams dating back to TECHNIQUE: Digital breast tomosynthesis is performed in both the craniocaudal and mediolateral oblique views along with computer-aided detection (CAD). Synthesized 2D images are generated from the tomosynthesis. FINDINGS: There are scattered areas of fibroglandular density (ACR BI-RADS breast composition Category b). There are no significant masses, abnormal calcifications, or other abnormalities. There is a biopsy tissue marker in the left breast. MM/MM tomosynthesis screening BI IMPRESSION: No mammographic evidence of malignancy. ASSESSMENT: BI-RADS BI-RADS 2 - Benign Findings RECOMMENDATION: Routine annual mammography screening. 1 year F/U This examination should not preclude the clinical evaluation of a suspicious palpable abnormality. This patient's information was entered into a reminder system with a target due date for their next mammogram. Dictated By: Nerissa Del Rosario MD Signed By: <Electronically signed by Nerissa Del Rosario MD in OV> 02/18/23 0800 DD/ 1620 TD/TT: Business Banking Representative: Procedure Note Donotuseinterpreter, Image - 02/18/2023 [facility] [address] [place] [address] Mammography Report Signed Patient: Corina Helm#: [id number] : 9Acct:[id number] Age/Sex: 72 / FADM Date: 02/02/23 Loc: HO.MAMMO Attending Dr: Nikky Shaw MD Ordering Physician: Cheryl Shawults: 2Benign F indings Date of Service: 02/02/23Follow Up: 1 Year From Orig inal Mammogram Procedure(s): MM tomosynthesis screening BI Accession Number(s): [id number] cc: Nikky Shaw EXAMINATION: MM SCREENING DIGITAL BREAST TOMOSYNTHESIS, BILATERAL CLINICAL INFORMATION: Screening. Asymptomatic. COMPARISON: Mammography: This study is compared with prior exams dating back to TECHNIQUE: Digital breast tomosynthesis is performed in both the craniocaudal and mediolateral oblique views along with computer-aided detection (CAD). Synthesized 2D images are generated from the tomosynthesis. FINDINGS: There are scattered areas of fibroglandular density (ACR BI-RADS breast composition Category b). There are no significant masses, abnormal calcifications, or other abnormalities. There is a biopsy tissue marker in the left breast. MM/MM tomosynthesis screening BI IMPRESSION: No mammographic evidence of malignancy. ASSESSMENT: BI-RADS BI-RADS 2 - Benign Findings RECOMMENDATION: Routine annual mammography screening. 1 year F/U This examination should not preclude the clinical evaluation of a suspicious palpable abnormality. This patient's information was entered into a reminder system with a target due date for their next mammogram. Dictated By: Nerissa Del Rosario MD Signed By: <Electronically signed by Nerissa Del Rosario MD in OV> 02/18/23 0800 DD/ 1620 TD/TT: Business Banking Representative: Nikky Shaw MD IMG BI PROCEDURES Final Result documented in this encounter Visit Diagnoses Diagnosis COPD with acute exacerbation (CMS/HCC) (HCC) Primary osteoarthritis of right knee documented in this encounter Additional Health Concerns Assessment Noted Time PHQ-9 Depression Total Score: 0 10/21/19 23 3:26 PM EDT documented as of this encounter Care Teams Instrument Mechanic Relationship Specialty Start Date End Date Nikky Shaw MD [address] [place] [address] PCP - General Family Medicine 04/02/20 documented as of this encounter
--- OUTSIDE RECORDS SUMMARY | 2025-03-17 12:17 | XMS_ITS | Encounter Summary ---
Author Organization [employer] Address [address] [facility] 7[address] [place] [address] Care Team Providers Care Automatic Pattern Edger Name Role Phone Nikky Shaw MD Primary Care Provider [phone] Reason for Visit * Reason Comments Med Change Request Encounter Details Date Type Department Care Team ([facility] Contact Info) Description 03/17/2025 Refill [facility] MEDICINE [address] [place], [place] [phone] Nikky Shaw MD [address] [place], [place] [phone] Social History Tobacco Use Types Packs/Day Years [...] AM EDT documented as of this encounter Functional Status * Over the past 2 weeks, how often have you been bothered by any of the following problems? Question Answer Date of Assessment Author Patient Health Questionnaire -2 Score 2 03/17/2025 10:06 AM EDT Rudy Alexandre MA * Little interest or pleasure in doing things Answer Date of Assessment Author Several days 03/17/2025 10:06 AM TOÑITOT Rudy Alexandre MA * Feeling down, depressed, or hopeless Answer Date of Assessment Author Several days 03/17/2025 10:06 AM Rudy Villa MA * Trouble falling or staying asleep, or sleeping too much Answer Date of Assessment Author Nearly every day 03/17/2025 10:06 AM Rudy Villa MA * Feeling tired or having little energy Answer Date of Assessment Author Several days 03/17/2025 10:06 AM EDRudy Mcmanus MA * Poor appetite or overeating Answer [...] Assessment Author Several days 03/17/2025 10:06 AM EDT Rudy Alexandre MA * Moving or speaking so slowly that other people could have noticed? Or the opposite - being so fidgety or restless that you have been moving around a lot more than usual. Answer Date of Assessment Author Several days 03/17/2025 10:06 AM TOÑITOT Rudy Alexandre MA * Thoughts that you would be better off or hurting yourself in some way Answer Date of Assessment Author Not at all 03/17/2025 10:06 AM EDT Rudy Alexandre MA * Patient Health Questionnaire-9 Score Answer Date of Assessment Author 10 03/17/2025 10:06 AM EDT Rudy Alexandre MA * How difficult have these problems made it for you to do your work, take care of things at home, or get along with other people? Answer Date of Assessment Author Somewhat difficult 03/17/2025 10:06 AM EDT Rudy Sotomayor MA documented as of this encounter Plan of Treatment Upcoming Encounters Date Type Department Care Team (Late st Contact Info) Description 04/14/2025 1:30 PM EST Office Visit [facility] ADULT DENTAL [address] [place] [address] Rush Taylor documented as of this encounter Visit Diagnoses Not on filedocumented in this encounter Additional Health Concerns Assessment Noted Time PHQ-9 Depression Total Score: 10 025 10:06 AM EDT documented as of this encounter Care Teams Automatic Pattern Edger Relationship Specialty Start Date End Date Nikky Shaw MD [address] [place] [id number] PCP - General Family Medicine 04/02/20 documented as of this encounter
--- OUTSIDE RECORDS SUMMARY | 2025-03-17 12:17 | XMS_ITS | Encounter Summary ---
Author Organization [employer] Address [address] [facility] 7t [place] [address] Care Team Providers Care Drying Room Attendant Name Role Phone Nikky Shaw MD Primary Care Provider [phone] Encounter Details Date Type Department Care Team ([facility] st Contact Info) Description 07/01/[address] [facility] MEDICINE [address] [place], [place] [phone] Nikky Shaw MD [address] [place], [place] [phone] Social History Tobacco Use Types Packs/Day Years Used Date Smoking Tobacco: Never Smokeless Tobacco: Never Alcohol Use Standard Drinks/Week Comments Not Currently 0 (1 standard drink = 0.6 oz pur e alcohol) Depression Answer Date Recorded Patient Health Questionnaire-9 Score 0 05/15/2024 Patient Health Questionnaire-9 Score 0 05/15/2024 Last PHQ-9: Questionnaire Data Not on file 1 07/16/2023 Housing Stability Answer Date Recorded What is [...] Date Recorded Patient Health Questionnaire-2 Score 0 05/15/2024 Internet Access Answer Date Recorded Internet Access Q1 Yes 05/01/2024 Internet Access Q2 Not on file 05/01/2024 Comments Unknown Sex and Gender Information Value [...] Description 04/14/2025 1:30 PM EST Office Visit [facility] ADULT DENTAL [address] [place] [address] Rush Taylor documented as of this encounter Visit Diagnoses Not on filedocumented in this encounter Additional Health Concerns Assessment Noted Time PHQ-9 Depression Total Score: 0 05/15/20 24 3:29 PM EST documented as of this encounter Care Teams Drying Room Attendant Relationship Specialty Start Date End Date Nikky Shaw MD [address] [place] [address] PCP - General Family Medicine 04/02/20 documented as of this encounter
--- OUTSIDE RECORDS SUMMARY | 2025-03-17 12:17 | XMS_ITS | Encounter Summary ---
Author Organization [employer] Address [address] [facility] [address]t [place] [address] Care Team Providers Care Physicist Astrophysics Name Role Phone Nikky Shaw MD Primary Care Provider [phone] Reason for Visit * Reason Onset Date Comments Chart Prep 03/16/2025 Encounter Details Date Type Department Care Team ([facility] st Contact Info) Description 03/16/2025 Telephone [facility] MEDICINE [address] [place], [place] [phone] Nikky Shaw MD [address] [place], [place] [phone] Chart Prep Social History Tobacco Use Types Packs/Day Years [...] encounter Miscellaneous Notes * Telephone Encounter - Mona Caruso [place] - 03/16/2025 2:22 PM EDT Chart Prep Labs: not done Images: not applicable Referrals: appointment pending Vaccines due: Covid, Flu, Tdap, RSV, and Zoster Screenings: eye exam and Hep C Screening Overdue care gaps: A1c, Glucose, SBIRT, PHQ-9, and MITA-7 documented in this encounter Plan of Treatment Upcoming Encounters Date Type Department Care Team (Late st Contact Info) Description 04/14/2025 1:30 PM EST Office Visit [facility] ADULT DENTAL [address] [place] [address] Rush Taylor documented as of this encounter Visit Diagnoses Not on filedocumented in this encounter Additional Health Concerns Assessment Noted Time PHQ-9 Depression Total Score: 0 05/15/20 24 3:29 PM EST documented as of this encounter Care Teams Physicist Astrophysics Relationship Specialty Start Date End Date Nikky Shaw MD [address] [place] [id number] PCP - General Family Medicine 04/02/20 documented as of this encounter
--- OUTSIDE RECORDS SUMMARY | 2025-03-17 12:17 | XMS_ITS | Encounter Summary ---
Author Organization [employer] Address [address] [facility] 7t [place] [address] Care Team Providers Care Continuous Process Machine Operator Name Role Phone Nikky Shaw MD Primary Care Provider [phone] Encounter Details Date Type Department Care Team (Late st Contact Info) Description 11/27/2022 Orders Only [facility] MEDICINE [address] [place], [place] [phone] Nikky Shaw MD [address] [place], [place] [phone] Type 2 diabetes mellitus with hyperglycemia, without long-term current use of insulin ([facility]) Social History Tobacco Use Types Packs/Day Years [...] Description 04/14/2025 1:30 PM EST Office Visit [facility] ADULT DENTAL [address] [place] [address] Rush Taylor documented as of this encounter Visit Diagnoses Diagnosis Type 2 diabetes mellitus with hyperglycemia, without long-term current use of insulin (HCC) documented in this encounter Additional Health Concerns Assessment Noted Time PHQ-9 Depression Total Score: 0 10/21/19 23 3:26 PM EDT documented as of this encounter Care Teams Continuous Process Machine Operator Relationship Specialty Start Date End Date Nikky Shaw MD [address] [place] [address] PCP - General Family Medicine 04/02/20 documented as of this encounter
--- OUTSIDE RECORDS SUMMARY | 2025-03-17 12:17 | XMS_ITS | Encounter Summary ---
Author Organization [employer] Address [address] [facility] [address] 7[address] [place] [address] Care Team Providers Care Commercial Pilot Name Role Phone Nikky Shaw MD Primary Care Provider [phone] Encounter Details Date Type Department Care Team (Late st Contact Info) Description 10/26/2023 Orders Only [facility] MEDICINE [address] [place], [place] [phone] Nikky Shaw MD [address] [place], [place] [phone] Social History Tobacco Use Types Packs/Day Years Used Date Smoking Tobacco: Never Smokeless Tobacco: Never Alcohol Use Standard Drinks/Week Comments Not Currently 0 (1 standard drink = 0.6 oz pur e alcohol) Depression Answer Date Recorded Patient Health Questionnaire-9 Score 0 10/20/2022 Housing Stability Answer Date Recorded What is your housing situation today? I have margoth dawkins 03/05/[address] you li ve. Do you have problems with any of the following? None of the above 03/05/2023 Food Insecurity Answer Date Recorded Within the past 12 months, y ou worried that your food would run out before you got money to buy more: Never True 03/05/2023 Within the past 12 months,th e food you bought just didn't last and you didn't have enough money to get more: Never True Transportation Answer Date Recorded In the past 12 months, has l ack of transportation kept you from medical appts, meetings, work or from getting things needed for daily living? No 03/05/2023 Utilities Answer Date Recorded In the past 12 months, has t he electric, gas, oil or water [employer] threatened to shut off services in your home? No 03/05/2023 Depression Answer Date Recorded Patient Health Questionnaire-2 [...] Description 04/14/2025 1:30 PM EST Office Visit [facility] ADULT DENTAL [address] [place] [address] Rush Taylor documented as of this encounter Visit Diagnoses Not on filedocumented in this encounter Additional Health Concerns Assessment Noted Time PHQ-9 Depression Total Score: 0 10/21/19 23 3:26 PM EDT documented as of this encounter Care Teams Commercial Pilot Relationship Specialty Start Date End Date Nikky Shaw MD [address] [place] [id number] PCP - General Family Medicine 04/02/20 documented as of this encounter
--- OUTSIDE RECORDS SUMMARY | 2025-03-17 12:17 | XMS_ITS | Encounter Summary ---
Author Organization [employer] Address [address] [facility] [address] [place] [address] Care Team Providers Care Wellness Nurse Name Role Phone Nikky Shaw MD Primary Care Provider [phone] Encounter Details Date Type Department Care Team (Latest Contact Info) Description 03/17/2025 Travel Social History Tobacco Use Types Packs/Day Years [...] Questionnaire -2 Score 2 03/17/2025 10:06 AM TOÑITOT Rudy Alexandre MA * Little interest or [...] 10:06 AM EDT Rudy Alexandre MA * Thoughts that you would be better off or hurting yourself in some way Answer Date of Assessment Author Not at all 03/17/2025 10:06 AM TOÑITOT Rudy Alexandre MA * Patient Health Questionnaire-9 [...] Description 04/14/2025 1:30 PM EST Office Visit [facility] ADULT DENTAL [address] [place] [address] Rush Taylor documented as of this encounter Visit Diagnoses Not on filedocumented in this encounter Additional Health Concerns Assessment Noted Time PHQ-9 Depression Total Score: 10 025 10:06 AM EDT documented as of this encounter Care Teams Wellness Nurse Relationship Specialty Start Date End Date Nikky Shaw MD [address] [place] [address] PCP - General Family Medicine 04/02/20 documented as of this encounter
--- OUTSIDE RECORDS SUMMARY | 2025-03-17 12:17 | XMS_ITS | Encounter Summary ---
Author Organization [employer] Address [address] [facility] 7t [place] [address] Care Team Providers Care Head Animal Trainer Name Role Phone Nikky Shaw MD Primary Care Provider [phone] Reason for Visit * Reason Comments Med Refill Encounter Details Date Type Department Care Team ([facility] st Contact Info) Description 03/27/2024 Refill [facility] MEDICINE [address] [place] [address] Nikky Shaw MD [address] [place], [place] [phone] Type 2 diabetes mellitus with hyperglycemia, without long-term current use of insulin ([facility]) Social History Tobacco Use Types Packs/Day Years [...] Description 04/14/2025 1:30 PM EST Office Visit [facility] ADULT DENTAL [address] [place] [address] Rush Taylor documented as of this encounter Visit Diagnoses Diagnosis Type 2 diabetes mellitus with hyperglycemia, without long-term current use of insulin (HCC) documented in this encounter Additional Health Concerns Assessment Noted Time PHQ-9 Depression Total Score: 0 10/21/19 23 3:26 PM EDT documented as of this encounter Care Teams Head Animal Trainer Relationship Specialty Start Date End Date Nikky Shaw MD [address] [place] [id number] PCP - General Family Medicine 04/02/20 documented as of this encounter
== END 2025-03-17 10:10 | disposition home or self-care (01) ==
LOC: HO.HHCL 10:09
PROVIDERS: PCP General Practice; Visit Provider General Practice
DX: E11.65 Type 2 diabetes mellitus with hyperglycemia (principal)
CPT/HCPCS: 36415; 80053; 80061; 82043; 82570